=== PATIENT | female | born 1955 | race Caucasian/White ===

== ENCOUNTER 2017-11-02 15:07 | Emergency (ER) | payer BC, OTHER ==
[2017-11-02 15:31] VITALS: BP 127/98
[2017-11-02] MEDS ORDERED: Albuterol/Ipratropium NEB.SOL* Albuterol 2.5 MG/Ipratropium 0.5 MG 3 ML INH ONE (15:55)
--- NOTE | 2017-11-02 16:22 | RAD ---
INDICATION: Dyspnea. Cough. Pleurisy. COMPARISON: No relevant prior exams available on the [facility] for comparison. TECHNIQUE: Dual energy PA and routine lateral views of the chest were obtained. REPORT: Clear lungs and pleural spaces. Negative for pneumothorax. The heart, pulmonary vasculature, and mediastinal contours are unremarkable. Unremarkable osseous structures and soft tissue contours. IMPRESSION: No evidence for acute intrathoracic disease.
--- NOTE | 2017-11-02 17:22 | UC ---
Moncho Hein Gabriel, scribed for Alec Vanegas MD on 11/02/17 at 1554 . Respiratory Complaint HPI - HPI Summary HPI Summary: This patient is a 62 year old F presenting to [facility] [place] with a chief complaint of SOB that began this morning but got worse throughout the day. The patient rates the pain 0/10 in severity. Symptoms alleviated by nothing, patient took albuterol earlier this morning. Patient reports rhinorrhea, cough, and mild wheezing. Patient denies CP, calf pain, and ear pain. Hx asthma. Pt was diagnosed with pleurisy 6 days ago, she was given muscle relaxer, ibuprofen, and a Z pack. She was seen at [facility] and given CTA, xray, and blood work. - History of Current Complaint Chief Complaint: UCRespiratory Stated Complaint: ASTHMA TROUBLE BREATHING Time Seen by Provider: 11/02/17 15:46 Hx Obtained From: Patient Onset/Duration: Lasting Hours, Still Present Timing: Constant Severity Initially: Mild Severity Currently: Moderate Pain Intensity: 0 Pain Scale Used: 0-10 Numeric Character: Cough: Nonproductive Alleviating Factors: Nothing Associated Signs And Symptoms: Positive: Wheezing - Allergies/Home Medications Allergies/Adverse Reactions: Allergies Allergy/AdvReac Type Severity Reaction Status Date / Time No Known Allergies Allergy Verified 10/15/15 15:11 Home Medications: Home Medications ALPRAZolam TAB* [Xanax TAB*] 0.25 mg PO 11/02/17 [History] PMH/Surg Hx/FS Hx/Imm Hx Respiratory History: Asthma Other History Of: Negative For: Anticoagulant Therapy - Surgical History Surgical History: Yes Surgery Procedure, Year, and Place: hysterectomy - Family History Known Family History: Negative: Respiratory Disease, Seizure Disorder, Blood Disorder, Other - Social History Lives: With Family Alcohol Use: Rare Substance Use Type: None Smoking Status (MU): Former Smoker When Did the Patient Quit Smoking/Using Tobacco: 15 YEARS AGO - Immunization History Most Recent Tetanus Shot: one year ago Review of Systems ENT: Nasal Discharge Respiratory: Cough, Other - mild wheezing All Other Systems Reviewed And Are Negative: Yes Physical Exam - Summary Physical Exam Summary: General: well-appearing, no pain distress Skin: warm, color reflects adequate perfusion, dry Head: normal Eyes: EOMI, CAROLYNN ENT: normal Neck: supple, nontender Respiratory: CTA, breath sounds present Cardiovascular: RRR Abdomen: soft, nontender Bowel: present Musculoskeletal: normal, strength/ROM intact, calves were non tender Neurological: normal, sensory/motor intact, A&O x3 Psychological: affect/mood appropriate Triage Information Reviewed: Yes Vital Signs: Initial Vital Signs Temp 97.6 F 11/02/17 15:23 Pulse 83 11/02/17 15:23 Resp 20 11/02/17 15:23 BP 127/98 11/02/17 15:23 Pulse Ox 98 11/02/17 15:23 Vital Signs Reviewed: Yes Diagnostic Evaluation - Laboratory O2 Sat by Pulse Oximetry: 98 - Radiology Radiology Interpretation Completed By: Radiologist - CXR reveals, No evidence for acute intrathoracic disease. Dr. Vanegas has reviewed this report. Respiratory Course/Dx - Course Course Of Treatment: Medications reviewed. Allergies noted. PATIENT DECLINES AN EKG AND ANY MORE WORKUP THAN A CXR. SHE REPORTS SHE WAS SEEN AT [facility] 1 WEEK AGO WITH A NORMAL CTA CHEST. F/U PMD; GET RECHECKED SOONER IF WORSE. - Differential Dx/Diagnosis Provider Diagnoses: ASTHMA EXACERBATION. SHORTNESS OF BREATH Discharge - Sign-Out/Discharge Documenting (check all that apply): Discharge/Admit/Transfer - Discharge Plan Condition: Stable Disposition: HOME Prescriptions: Ibuprofen TAB* [Motrin TAB* 600 MG] 600 mg PO Q6H PRN #20 tab PRN Reason: Pain predniSONE TAB* [Deltasone TAB*] 40 mg PO DAILY #10 tab Patient Education Materials: Asthma (ED), Shortness of Breath (ED) Referrals: Vernell Kirkpatrick NP [Primary Care Provider] - Additional Instructions: FOLLOW UP WITH YOUR DOCTOR. GO TO THE EMERGENCY DEPARTMENT FOR ANY WORSENING OF YOUR CONDITION OR QUESTIONS OR CONCERNS. YOUR BLOOD PRESSURE WAS ELEVATED TODAY; FOLLOW UP WITH YOUR PRIMARY CARE DOCTOR WITHIN ONE WEEK. - Billing Disposition and Condition Condition: STABLE Disposition: HOME The documentation as recorded by the Moncho torres Gabriel accurately reflects the service I personally performed and the decisions made by me, Alec Vanegas MD.
== END 2017-11-02 17:10 | disposition home or self-care (01) ==
LOC: UCEAST 15:07
DX: J45.901 Unspecified asthma with (acute) exacerbation (principal); Z87.891 Personal history of nicotine dependence
CPT/HCPCS: 71046; 99212; A9270-GY; G0463

== ENCOUNTER 2018-04-14 10:01 | Emergency (ER) | payer BC ==
[2018-04-14 10:52] VITALS: BP 116/58
[2018-04-14] MEDS ORDERED: predniSONE TAB* 20 MG PO ONE (11:01)
[2018-04-14] MEDS ORDERED: Albuterol/Ipratropium NEB.SOL* Albuterol 2.5 MG/Ipratropium 0.5 MG 3 ML INH ONE (11:01)
--- NOTE | 2018-04-14 11:40 | UC ---
Respiratory Complaint HPI - HPI Summary HPI Summary: 62-year-old woman comes in with a chief complaint of respiratory tract infection symptoms cough and difficulty breathing. Patient has a history of asthma. She feels the upper respiratory tract infection is making her asthma worse 7 are tender breathing. No fevers she does have rhinorrhea and sputum. She is not a smoker. Her inhalers are not working as well as she wishes they would. In the past she's had something similar and she reports that prednisone is helped. Denies any chest pain or swelling in the ankles. - History of Current Complaint Chief Complaint: UCRespiratory Stated Complaint: ASTHMA Time Seen by Provider: 04/14/18 10:47 Pain Intensity: 3 - Allergies/Home Medications Allergies/Adverse Reactions: Allergies Allergy/AdvReac Type Severity Reaction Status Date / Time No Known Allergies Allergy Verified 04/14/18 10:50 Home Medications: Home Medications Ibuprofen TAB* [Motrin TAB* 600 MG] 400 mg PO Q6H PRN 04/14/18 [History] PMH/Surg Hx/FS Hx/Imm Hx Respiratory History: Asthma Other History Of: Negative For: Anticoagulant Therapy - Surgical History Surgical History: Yes Surgery Procedure, Year, and Place: hysterectomy - Family History Known Family History: Positive: None Negative: Respiratory Disease, Seizure Disorder, Blood Disorder, Other - Social History Alcohol Use: None Substance Use Type: None Smoking Status (MU): Former Smoker When Did the Patient Quit Smoking/Using Tobacco: 15 YEARS AGO - Immunization History Most Recent Tetanus Shot: one year ago Review of Systems Constitutional: Negative Skin: Negative Eyes: Negative ENT: Sore Throat, Nasal Discharge, Sinus Congestion Respiratory: Shortness Of Breath, Cough Cardiovascular: Negative Gastrointestinal: Negative Motor: Negative Neurovascular: Negative Musculoskeletal: Negative Neurological: Negative Psychological: Negative Is Patient Immunocompromised?: No All Other Systems Reviewed And Are Negative: Yes Physical Exam Triage Information Reviewed: Yes Appearance: Well-Appearing, No Pain Distress, Well-Nourished Vital Signs: Initial Vital Signs Temp 98.4 F 04/14/18 10:43 Pulse 94 04/14/18 10:43 Resp 26 04/14/18 10:43 BP 116/58 04/14/18 10:43 Pulse Ox 93 04/14/18 10:43 Eye Exam: Normal Eyes: Positive: Conjunctiva Clear ENT: Positive: Pharyngeal erythema, Nasal congestion, Nasal drainage, TMs normal Neck exam: Normal Neck: Positive: Supple Respiratory: Positive: No respiratory distress, Wheezing Cardiovascular Exam: Normal Cardiovascular: Positive: RRR Musculoskeletal Exam: Normal Musculoskeletal: Positive: Strength Intact, ROM Intact, No Edema Neurological Exam: Normal Neurological: Positive: Alert Psychological Exam: Normal Psychological: Positive: Age Appropriate Behavior Skin Exam: Normal UC Diagnostic Evaluation - Laboratory O2 Sat by Pulse Oximetry: 93 Respiratory Course/Dx - Course Course Of Treatment: Patient has some improvement in the clinic with a DuoNeb. Prednisone 60 mg by mouth was also given. Patient denies any chest pain. Patient would like to be on an antibiotic at this time. The plan is also to have her on prednisone and follow-up with her regular medical doctor. She's to go to the emergency department if she gets worse. - Differential Dx/Diagnosis Provider Diagnoses: BRONCHITIS. ASTHMA Discharge - Sign-Out/Discharge Documenting (check all that apply): Patient Departure All imaging exams completed and their final reports reviewed: No Studies - Discharge Plan Condition: Stable Disposition: HOME Prescriptions: Azithromyxin AMELIA (NF) [Z-Amelia (Zithromax) 250 mg tabs #6] 2 tab PO .TODAY, THEN 1 DAILY #6 tab Benzonatate CAP* [Tessalon 100 MG CAP*] 100 mg PO TID PRN #15 cap PRN Reason: Cough predniSONE [Prednisone 20 MG TAB] 20 mg PO DAILY #8 tablet Patient Education Materials: Acute Bronchitis (ED), Asthma (ED) Referrals: Vernell Kirkpatrick NP [Primary Care Provider] - Additional Instructions: FOLLOW UP WITH YOUR DOCTOR. GET RECHECKED FOR ANY WORSENING OF YOUR CONDITION OR QUESTIONS OR CONCERNS. - Billing Disposition and Condition Condition: STABLE Disposition: Home
== END 2018-04-14 12:05 | disposition home or self-care (01) ==
LOC: UCEAST 10:01
DX: J40 Bronchitis, not specified as acute or chronic (principal); J34.89 Other specified disorders of nose and nasal sinuses; J45.909 Unspecified asthma, uncomplicated; Z87.891 Personal history of nicotine dependence
CPT/HCPCS: 99212; A9270-GY; G0463; J7512